=== PATIENT | female | born 1975 | race Caucasian/White ===

== ENCOUNTER 2021-07-26 10:24 | Emergency (ER) | payer OTHER, MEDICAID, SELFPAY ==
[2021-07-26 12:26] VITALS: BP 152/101; PULSE 76; RESP 18; TEMP 36.8; O2SAT 97; BMI 48.2
--- NOTE | 2021-07-26 12:37 | HMH.EDUTC ---
[facility] Disposition Clinical Impression: Laceration Disposition: Home, Self-Care Condition on Discharge: Good Instructions: How to Care for a Laceration After Repair, Laceration Repair, DI for Laceration Repair -- Finger Additional Instructions: Suture instructions: You have required stitches today. Please read the following instructions so you know how to care for them: 1. Keep wound area dry for the first 24 hours. 2 May clean gently with mild soap and water, after 48 hours to prevent crusting over suture knots. 3. You may shower if your provider gives permission but do not take a bath until the skin is healed.. 4. Never leave a wet dressing or Band-Aid on your stitches as this allows bacteria to reach the area and may cause infection. Band-aids can cause the wound to sweat and not recommended to wear for long periods of time Watch for signs of infection: Increasing redness, tenderness or warmth around the suture site Unusual swelling around the site Appearance of pus around each suture or any red streaks Fever If you develop any of the above signs or symptoms of infection, Follow up with Family Physician immediately 5. Suture removal in _7-10___days 6. Return to [facility] or follow up with family doctor for removal. This can be done by any medical provider during regular hours on Saturday through Saturday, by appointment. Referrals: Jovanni Underwood [Primary Care Provider] - As needed Time of Disposition: 13:30 Medical Decision Making - Elías Inquiry Pt receiving controlled substance: No Elías was queried for this patient: No Vital Signs: 07/26/21 12:26 Temperature 98.3 F Temperature Source Oral Pulse Rate [Left] 76 Respiratory Rate 18 Blood Pressure [Right Arm] 152/101 H Blood Pressure Mean [Right Arm] 118 02 Sat by Pulse Oximetry 97 Orders (Tests/Meds): ED MEDICATIONS Discontinued Medications Generic Name Dose Route Start Last Admin Trade Name Freq PRN Reason Stop Dose Admin Lidocaine HCl 2 ml 07/26/21 13:00 Lidocaine 1% Pf 2ml Ampule SQ 07/26/21 13:01 ONCE ONE Tetanus/Reduced Diphtheria/Acell Pertussis 0.5 ml 07/26/21 12:52 Tet/Diphth/Pert-Adult 0.5ml Syringe IM 07/26/21 12:53 .ONCE ONE [facility] HPI - General Stated complaint: wc 07/26, right thumb laceration Time Seen by Provider: 07/26/21 12:37 Mode of Arrival: Ambulatory Source of Information: Patient Limitations: No Limitations Description of Symptoms (Recalled from Triage Doc. by RN): pt presents with a lac to the pad of her R thumb. pt sliced her thumb on a slicer at work. HEENT Symptoms (Recalled from RN notes): No Resp Symptoms (Recalled from RN notes): No Skin Symptoms (Recalled from RN notes): Yes MS Symptoms (Recalled from RN notes): No Functional Status (Recalled from RN notes): wnl - History of Present Illness Provider Complaint: Patient states that she was using a slicer at work when it slipped and cut her right thumb States that she immediately applied pressure and they made her come in to get checked out - Related Data Allergies Allergy/AdvReac Type Severity Reaction Status Date / Time duloxetine [From Cymbalta] Allergy Verified 07/26/21 12:29 Penicillins Allergy Verified 07/26/21 12:29 - Worker's Comp Is this a Worker's Comp case?: No [facility] History - Hepatitis A Screen Drug use history?: No High risk sexual behaviors?: No History of sexually transmitted infection?: No Currently employed?: No Childcare worker?: No Do you have indoor plumbing?: Yes Do you have electricity?: Yes Attestation statement:: This patient has been screened for Hepatitis A risk factors. I have reviewed the patient's past medical history: Yes ROS Obtained: Yes All systems reviewed & no additional complaints, Yes Systems reviewed as appropriate & no additional complaints - Constitutional Constitutional: Reports system reviewed and no additional complaints, except as docu, Denies body ache, Denies chills, Denie
[2021-07-26 13:55] VITALS: BP 152/101; PULSE 76; RESP 18; TEMP 36.8
== END 2021-07-26 13:56 | disposition home or self-care (01) ==
PROVIDERS: Emergency Provider Nurse Practitioner; PCP Family Medicine
DX: S61.011A Laceration without foreign body of right thumb without damage to nail, initial encounter (principal); W31.89XA Contact with other specified machinery, initial encounter; Y92.69 Other specified industrial and construction area as the place of occurrence of the external cause; Y99.0 Civilian activity done for income or pay; Z23 Encounter for immunization; Z88.0 Allergy status to penicillin
CPT/HCPCS: 12001; 90471; 90715; 96372